=== PATIENT | female | born 1955 | race Caucasian/White ===

== ENCOUNTER 2019-09-11 10:55 | Emergency (ER) | payer BC ==
[~2019-09-11] VITALS: Ht 157.5 cm; Wt 74.0 kg
[2019-09-11] MEDS ORDERED: diphenhydrAMINE 50 mg/ml inj IV ONE (11:15)
[2019-09-11] MEDS ORDERED: proCHLORperazine 10 MG/2 ml inj IV ONE (11:15)
[2019-09-11] MEDS ORDERED: cyclobenzaprine 10mg tablet PO ONE (13:00)
[2019-09-11] MEDS ORDERED: morphine 4 MG/ML inj SYRINge IV ONE (13:00)
[2019-09-11] MEDS ORDERED: ketorolac trometh. 30mg/ml inj. IV ONE (13:00)
[2019-09-11] MEDS ORDERED: ondansetron/PF 4mg/2ml inj IV ONE (13:10)
[2019-09-11 13:53] VITALS: BP 120/85
== END 2019-09-11 13:57 | disposition home or self-care (01) ==
LOC: ER 10:56
DX: M25.551 Pain in right hip (principal); E78.00 Pure hypercholesterolemia, unspecified; W01.0XXA Fall on same level from slipping, tripping and stumbling without subsequent striking against object, initial encounter; Y93.01 Activity, walking, marching and hiking; Y92.89 Other specified places as the place of occurrence of the external cause; Y99.9 Unspecified external cause status
CPT/HCPCS: 73502; 96374; 96375; 99284; J0780; J1200; J1885; J2270; J2405